=== PATIENT | male | born 2000 | race Caucasian/White ===

== ENCOUNTER 2022-04-16 09:19 | Emergency (ER) | payer BC, SELFPAY ==
[2022-04-16 09:31] VITALS: BP 136/93; PULSE 88; RESP 18; TEMP 36.9; O2SAT 99
[2022-04-16 10:25] LABS: Basophils Absolute Auto 0.03 K/mm3 (0.00-0.10); Basophils Percent Auto 0.4 % (0.0-1.0); Eosinophils Absolute Auto 0.04 K/mm3 (0.02-0.50); Eosinophils Percent Auto 0.5 % (1.0-6.0); Hematocrit 44.6 % (40.0-54.0); Hemoglobin 14.7 g/dL (14.0-18.0); Immature Granulocyte Absolute 0.03 K/mm3 (0.00-0.00); Immature Granulocyte Percent A 0.4 % (0.0-0.0); Lymphocytes Absolute Auto 1.54 K/mm3 (1.10-4.50); Lymphocytes Percent Auto 18.4 % (18.0-42.0); Mean Corpuscular Hemoglobin 29.8 pg (27.0-31.0); Mean Corpuscular Volume 90.3 fL (78.0-102.0); Mean Platelet Volume 8.2 fl (8.7-11.0); Monocytes Percent Auto 8.3 % (2.0-11.0); Neutrophils Absolute Auto 6.1 K/mm3 (1.7-7.2); Platelet Count Result 307 K/mm3 (150-420); Red Blood Count 4.94 M/mm3 (4.70-6.10); Red Cell Distribution Width 11.3 % (11.6-14.4); White Blood Count 8.4 K/mm3 (4.8-10.8)
--- NOTE | 2022-04-16 10:38 | ED.GENADULT ---
HPI - General Adult General Chief complaint: Unspecified Stated complaint: BUMPS ON NECK Time Seen by Provider: 04/16/22 09:22 Source: patient, family and RN notes reviewed Mode of arrival: ambulatory Limitations: no limitations History of Present Illness complaint: small bumps of bilateral neck x several weeks. no cough, fever or sore thr Onset (ago): week(s) (6) Location: neck Radiation: non-radiation Severity: mild Quality: dull Pain Consistency: other (non-painful.) Relieving factors: none Exacerbating factors: none Associated symptoms: denies other symptoms Treatments prior to arrival: other (no acute sxs.) Related Data Allergies Allergy/AdvReac Type Severity Reaction Status Date / Time No Known Allergies Allergy Unverified 04/16/22 10:56 Review of Systems Review of Systems: All systems reviewed & are unremarkable except as noted in HPI and below Constitutional: Constitutional: Reports no additional constitutional complaints Eyes: Eyes: Reports no additional eye complaints ENT: Reports system reviewed and no additional complaints, except as documented and Reports other (few bilateral neck lumps.) Cardiovascular: Cardiovascular: Reports no additional cardiovascular complaints Respiratory: Respiratory: Reports no additional respiratory complaints Gastrointestinal: Gastrointestinal: Reports no additional gastrointestinal complaints Musculoskeletal: Musculoskeletal: Reports no additional musculoskeletal complaints Integumentary/Breasts: Skin/Breast: Reports system reviewed and no additional complaints, except as docu Neurologic: Reports system reviewed and no additional complaints, except as documented Psychiatric: Psychiatric: Reports no additional psychiatric complaints Endocrine: Endocrine: Reports no additional endocrine complaints Hematologic/Lymphatic: Hematologic/Lymphatic: Reports no additional hematologic/lymphatic complaints Allergic/Immunologic: Allergic/Immunologic: Reports no additional allergic/immunologic complaints PMFSH Past Medical History Medical History (Updated 04/16/22 @ 10:54 by Cheko Perera MD) Lymphadenopathy Exam Const: General: healthy appearing and no acute distress Nutritional Appearance: well nourished Orientation/consciousness: patient oriented x3 Limitations: no limitations HENMT: Head: normal to inspection and other (bilateral few, non-tender neck lumps.) Ears: external ears normal, TM's normal bilaterally and EAC's normal General nose exam: Normal external nose present and Normal nares present Face and sinus: normal facial exam and sinuses nontender Mouth: Yes Normal oral and palatal mucosa present and Yes moist mucous membranes Teeth and gingiva: dentition normal Throat: posterior oropharynx normal Eyes: Conjunctivae: conjunctivae normal Pupils: Equal, round and reactive pupils present EOM: EOMs intact bilaterally Neck: Neck: normal visual inspection, no lymphadenopathy and no meningeal signs Chest: Chest palpation & inspection: normal inspection of the chest Resp: Effort & Inspection: normal respiratory effort Auscultation: clear to auscultation bilaterally Cardio: Rate: regular rate Rhythm: regular rhythm GI: GI Palp: Yes Soft to palpation and No Tenderness to palpation present (GI) Auscultation: normal bowel sounds : General: Yes bladder normal to palpation and Yes no CVA tenderness Back/Spine/Pelvis: Back: no CVA tenderness Skin: General skin exam: normal color Rashes: no rashes Wounds: no wounds Neuro: General: patient oriented x3, moves all extremities, no meningeal signs, no focal motor deficits and CN's II-XI intact bilaterally Cranial nerves: Yes Equal, round and reactive pupils present and Yes Nystagmus not present Speech: normal speech Gait exam (Neuro): Normal gait present Extrem: General: normal to inspection and no pedal edema Psych: Mental Status: mental status grossly normal Affect: normal affect Attitude: c
[2022-04-16 10:43] LABS: Alanine Aminotransferase 23 U/L (16-63); Albumin Level 4.1 g/dL (3.4-5.0); Alkaline Phosphatase 64 U/L (46-116); Anion Gap 6 mmol/L (8-16); Aspartate Amino Transferase 12 U/L (15-37); Bilirubin,Total 0.5 mg/dL (0.00-1.00); Blood Urea Nitrogen 12 mg/dL (7-18); Calcium 9.1 mg/dL (8.5-10.1); Carbon Dioxide 29 mmol/L (21-32); Chloride 103 mmol/L (98-108); Estimated CRCL calculation 102 ml/min; Estimated Glomerular Filt Rate > 60; Glucose 110 mg/dL (70-99); Osmolality Calculated 286 mOsm/kg (285-295); Potassium 4.2 mmol/L (3.5-5.1); Sodium 138 mmol/L (136-145); Total Protein 7.3 g/dL (6.4-8.2)
[2022-04-16 11:02] VITALS: BP 122/79; PULSE 79; RESP 18; O2SAT 99
== END 2022-04-16 11:15 | disposition home or self-care (01) ==
PROVIDERS: Emergency Provider Emergency Medicine; PCP Internal Medicine Infectious Disease
DX: R59.1 Generalized enlarged lymph nodes (principal); H69.80 Other specified disorders of Eustachian tube, unspecified ear
CPT/HCPCS: 80053; 85025; 87081; 87880; 99283

== ENCOUNTER 2024-11-03 14:49 | Emergency (ER) | payer BC, SELFPAY ==
[2024-11-03 14:50] VITALS: BP 139/88; PULSE 111; RESP 18; TEMP 35.9; O2SAT 98
--- NOTE | 2024-11-03 15:04 | ED.GENADULT ---
HPI - General Adult General Chief complaint: Nausea/Vomiting/Diarrhea Stated complaint: vomitting Time Seen by Provider: 11/03/24 15:02 History of Present Illness HPI narrative: Jose Daniel is a previously healthy 23M that presented to the ED with over 12 hours of nausea, non-bloody vomiting and watery diarrhea. Despite imodium he continues to have diarrhea and he cannot keep any fluids down. No CP, dyspnea or fevers reported. Related Data Allergies Allergy/AdvReac Type Severity Reaction Status Date / Time No Known Allergies Allergy Unverified 04/16/22 10:56 Review of Systems Review of Systems: All systems reviewed & are unremarkable except as noted in HPI and below [facility] Past Medical History Medical History (Updated 11/03/24 @ 16:23 by Alberto Holley DO) Lymphadenopathy Exam Const: General: cooperative, healthy appearing, comfortable, no acute distress, well developed, alert, awake and Physically active Orientation/consciousness: oriented to person, oriented to place and oriented to time HENMT: Head: normal to inspection, normocephalic and atraumatic Ears: hearing grossly normal bilaterally and external ears normal Face/Nose/Sinus: Normal external nose present Other: dry mucous membranes Eyes: General: appearance normal, both eyes and all related structures Periorbital: periorbital findings normal Sclera: sclerae normal Pupils: Equal, round and reactive pupils present Neck: Neck: normal visual inspection Chest: Chest palpation & inspection: normal inspection of the chest Resp: Effort & Inspection: normal respiratory effort, able to speak in complete sentences and no respiratory distress Cardio: Jugular venous distension: no JVD GI: Inspection: normal to inspection GI Palp: Yes Soft to palpation Auscultation: normal bowel sounds Skin: General skin exam: normal color and no rashes or lesions noted Neuro: General: oriented to person, oriented to place and oriented to time Cranial nerves: Yes Equal, round and reactive pupils present Extrem: General: normal to inspection Course Course Emergency Course: ordered fluids, labs and flu. He declined covid testing. He was given zofran. Magnesium was low and was repleted. After Mg, fluids and meds he felt better and was able to eat a sandwich Vital Signs Vital signs: Vital Signs Temperature 96.7 F L 11/03/24 14:50 Pulse Rate 111 H 11/03/24 14:50 Respiratory Rate 18 11/03/24 14:50 Blood Pressure 139/88 01/02/25 14:50 Pulse Oximetry 98 11/03/24 14:50 Oxygen Delivery Room Air 11/03/24 14:50 Temperature 98.5 F 11/03/24 17:24 Pulse Rate 113 H 11/03/24 17:24 Respiratory Rate 19 11/03/24 17:24 Blood Pressure 124/71 11/03/24 17:24 Pulse Oximetry 98 11/03/24 17:24 Oxygen Delivery Room Air 11/03/24 17:24 Medical Decision Making Vital Signs Vital Signs: Vital Signs Temperature 96.7 F L 11/03/24 14:50 Pulse Rate 111 H 11/03/24 14:50 Respiratory Rate 18 11/03/24 14:50 Blood Pressure 139/88 11/03/24 14:50 Pulse Oximetry 98 11/03/24 14:50 Oxygen Delivery Room Air 11/03/24 14:50 Temperature 98.5 F 11/03/24 17:24 Pulse Rate 113 H 11/03/24 17:24 Respiratory Rate 19 11/03/24 17:24 Blood Pressure 124/71 11/03/24 17:24 Pulse Oximetry 98 11/03/24 17:24 Oxygen Delivery Room Air 11/03/24 17:24 Lab Data 11/03/24 15:25 11/03/24 15:25 Labs: Lab Results 11/03/24 11/03/24 Range/Units 14:57 15:25 WBC 7.2 (4.8-10.8) K/mm3 RBC 5.30 (4.70-6.10) M/mm3 Hgb 15.3 (14.0-18.0) g/dL Hct 45.6 (40.0-54.0) % MCV 86.0 (78.0-102.0) fL MCH 28.9 (27.0-31.0) pg MCHC 33.6 (32-36) g/dL RDW 11.6 (11.6-14.4) % Plt Count 221 (150-420) K/mm3 MPV 8.1 L (8.7-11.0) fl Immature Gran % (Auto) 0.4 H (0.0-0.0) % Neut % (Auto) 81.9 H (50.0-70.0) % Lymph % (Auto) 7.9 L (18.0-42.0) % Hamlin % (Auto) 9.6 (2.0-11.0) % Eos % (Auto) 0.1 L (1.0-6.0) % Baso % (Auto) 0.1 (0.0-1.0) % Lymph # (Auto) 0.57 L (1.10-4.50) K/mm3 Hamlin # (Auto) 0.69 (0.10-0.90) K/mm3 Eos # (Auto) 0.01 L (0.02-0.50) K/mm3 Baso # (Auto) 0.01 (0.00-0.10) K/mm3 Abs Immat Gran (auto) 0.03 H (0.00-0.00) K/mm3 Absolute Neuts (auto) 5.91 (1.70-7.20) K/mm3 Absolute Nucleated RBC 0.00 (0.00-0.00) K/mm3 Nucleated RBC % 0.0 (0-0.0) % Sodium 137 (136-145) mmol/L Potassium 4.1 (3.5-5.1) mmol/L Chloride 98 (98-108) mmol/L Carbon Dioxide 29 (21-32) mmol/L Anion Gap 10 (4-12) mmol/L BUN 17 (7-18) mg/dL Creatinine 0.89 (0.70-1.30) mg/dL Estim Creat Clear Calc 127 ml/min Estimated GFR > 60 (59 - ) Glucose 114 H (70-99) mg/dL Calculated Osmolality 286 (285-295) mOsm/kg Calcium 8.4 L (8.5-10.1) mg/dL Magnesium 1.6 L (1.8-2.4) mg/dL Total Bilirubin 0.8 (0.00-1.00) mg/dL AST 15 (15-37) U/L ALT 29 (16-63) U/L Alkaline Phosphatase 50 (46-116) U/L Total Protein 6.6 (6.4-8.2) g/dL Albumin 3.9 (3.4-5.0) g/dL Lipase 30 (16-77) U/L Influenza Type A Ag Negative (Negative) Influenza Type B Ag Negative (Negative) Group A Strep (PCR) Not detected (Negative) Discharge Plan Discharge Clinical Impression: Gastroenteritis Patient Disposition: Home, Self-Care Condition: Stable Instructions: Gastroenteritis (ED) Patient Language: Bangladeshi Prescriptions: New ondansetron 4 mg tablet,disintegrating 4 mg PO Q8H PRN (Reason: nausea and vomiting) Qty: 20 0RF diphenoxylate-atropine [Lomotil] 2.5-0.025 mg tablet 1 tablet PO TID Qty: 30 5RF No Action Mucinex DM 30-600 mg tablet extended release 12 hr 1 tablet PO Q12H PRN (Reason: cough) Qty: 20 0RF Follow-up/Referrals: Jacinda,Lebron Gee MD [Primary Care Provider] -
--- NOTE | 2024-11-03 15:05 | PC.NURSE ---
flu swab sent to lab
--- NOTE | 2024-11-03 15:14 | PC.NURSE ---
pt refused covid swab
[2024-11-03] MEDS: SODIUM CHLORIDE 0.9% IV 1,000 ML 999 ML IV CONT (15:21)
[2024-11-03 15:25] LABS: Influenza Control Valid (Valid)
[2024-11-03 15:30] LABS: Basophils Absolute Auto 0.01 K/mm3 (0.00-0.10); Basophils Percent Auto 0.1 % (0.0-1.0); Eosinophils Absolute Auto 0.01 K/mm3 (0.02-0.50); Eosinophils Percent Auto 0.1 % (1.0-6.0); Hematocrit 45.6 % (40.0-54.0); Hemoglobin 15.3 g/dL (14.0-18.0); Immature Granulocyte Absolute 0.03 K/mm3 (0.00-0.00); Immature Granulocyte Percent A 0.4 % (0.0-0.0); Lymphocytes Absolute Auto 0.57 K/mm3 (1.10-4.50); Lymphocytes Percent Auto 7.9 % (18.0-42.0); Mean Corpuscular HGB Conc 33.6 g/dL (32-36); Mean Corpuscular Hemoglobin 28.9 pg (27.0-31.0); Mean Platelet Volume 8.1 fl (8.7-11.0); Monocytes Absolute Auto 0.69 K/mm3 (0.10-0.90); Monocytes Percent Auto 9.6 % (2.0-11.0); Neutrophils Absolute Auto 5.91 K/mm3 (1.70-7.20); Neutrophils Percent Auto 81.9 % (50.0-70.0); Platelet Count Result 221 K/mm3 (150-420); Red Cell Distribution Width 11.6 % (11.6-14.4); White Blood Count 7.2 K/mm3 (4.8-10.8)
[2024-11-03 15:38] LABS: Strep Group A RT-PCR NOT DETECTED (Negative)
[2024-11-03 15:50] LABS: Lipase 30 U/L (16-77); Magnesium 1.6 mg/dL (1.8-2.4)
[2024-11-03 15:55] LABS: Alanine Aminotransferase 29 U/L (16-63); Albumin Level 3.9 g/dL (3.4-5.0); Alkaline Phosphatase 50 U/L (46-116); Anion Gap 10 mmol/L (4-12); Aspartate Amino Transferase 15 U/L (15-37); Bilirubin,Total 0.8 mg/dL (0.00-1.00); Blood Urea Nitrogen 17 mg/dL (7-18); Calcium 8.4 mg/dL (8.5-10.1); Carbon Dioxide 29 mmol/L (21-32); Chloride 98 mmol/L (98-108); Estimated CRCL calculation 127 ml/min; Estimated Glomerular Filt Rate > 60; Glucose 114 mg/dL (70-99); Osmolality Calculated 286 mOsm/kg (285-295); Potassium 4.1 mmol/L (3.5-5.1); Sodium 137 mmol/L (136-145); Total Protein 6.6 g/dL (6.4-8.2)
[2024-11-03] MEDS: MAGNESIUM SULF 2 GM/WATER 50ML 2 GM/50 ML BAG IVPB (16:04)
[2024-11-03] MEDS: ONDANSETRON INJ 4 MG/2 ML VIAL IV PUSH (16:12)
[2024-11-03 17:24] VITALS: BP 124/71; PULSE 113; RESP 19; TEMP 36.9; O2SAT 98
[2024-11-03 18:00] VITALS: BP 127/71; PULSE 104; RESP 20; TEMP 37; O2SAT 98
== END 2024-11-03 18:01 | disposition home or self-care (01) ==
PROVIDERS: Emergency Medicine; Emergency Provider Family Medicine; PCP Internal Medicine Infectious Disease
DX: K52.9 Noninfective gastroenteritis and colitis, unspecified (principal)
CPT/HCPCS: 36415; 80053; 83690; 83735; 85025; 87651; 87804; 96361; 96365; 96366; 96375; 99284; J2405; J3475; J7030